=== PATIENT | female | born 1965 | race Caucasian/White ===

== ENCOUNTER 2022-01-24 11:48 | Outpatient (CLI) | payer OTHER, SELFPAY ==
--- NOTE | 2022-01-24 11:57 | CT_ITS ---
WS: [id number] LDCT LUNG CANCER SCREENING TECHNIQUE: Noncontrast CT of the chest with coronal and sagittal reformatted images. CLINICAL INFORMATION: NICOTINE DEPENDENCE, CIGARETTES COMPARISON: None. DLP: 85.68 mGy.cm DIvol: Mean CTDIvol: 1.60 (mGy) All CT scans at [facility] use at least one of these dose optimization techniques: automat ed exposure control; mA and/or kV adjustment per patient size (includes targeted exams where dose is matched to clinical indication); or iterative reconstruction. FINDINGS: Mild chronic emphysematous changes. Hazy groundglass infiltrate with slight atelectasis LEFT lower lo be. This is likely infectious or inflammatory. Correlation for pneumonitis. No other suspicious pulmo nary parenchymal opacities. Mild aortic calcification. No mediastinal or hilar lymphadenopathy. No axillary lymphadenopathy. Adre nal glands are normal. Normal GE junction. Mild thoracic curve and kyphosis. Degenerative disc space narrowing lower thoracic and upper lumbar spine with endplate sclerosis. CT/CT lung screening [id number] IMPRESSION: Hazy groundglass infiltrate with slight atelectasis LEFT lower lobe . This is likely infectious or inflammatory. Recommend correlation with pneumon itis LUNG-RADS: 1S-Negative with Significant Findings FOLLOW UP: 12 Month: Continue annual screening with LDCT
== END 2022-01-24 11:49 | disposition home or self-care (01) ==
LOC: RAD 11:54
PROVIDERS: Visit Provider Nurse Practitioner Family
DX: Z12.2 Encounter for screening for malignant neoplasm of respiratory organs (principal); F17.210 Nicotine dependence, cigarettes, uncomplicated; R91.8 Other nonspecific abnormal finding of lung field
CPT/HCPCS: 71271

== ENCOUNTER → 2024-06-10 14:15 | Outpatient (BNVA) | payer MEDICAID, SELFPAY | PROVIDERS: Referring Provider Nurse Practitioner Family; Visit Provider Obstetrics & Gynecology | DX: N81.10 Cystocele, unspecified (principal) | CPT/HCPCS: 81000 ==